=== PATIENT | female | born 1965 | race Asian ===

== ENCOUNTER → 2016-08-27 | Outpatient (CLI) | payer BC | END | disposition home or self-care (01) | LOC: CFH 07:22 | PROVIDERS: ATTEND Internal Medicine | DX: Z12.31 Encounter for screening mammogram for malignant neoplasm of breast (principal) | CPT/HCPCS: G0202 ==

== ENCOUNTER 2020-10-14 13:54 | Outpatient (CLI) | payer OTHER | END 2020-10-14 23:59 | disposition home or self-care (01) | LOC: CFH 13:54 | PROVIDERS: ATTEND Internal Medicine | DX: N20.0 Calculus of kidney (principal) | CPT/HCPCS: 74176 ==